=== PATIENT | male | born 1950 | race Caucasian/White ===

== ENCOUNTER 2021-06-21 05:24 | Day surgery (SDC) | payer OTHER ==
[~2021-06-21] VITALS: Ht 165 cm; Wt 86.0 kg
[~2021-06-21 05:24] MED LIST: AMLODIPINE BESYL5 MG PO; ATORVASTATIN CA20 MG PO; DICLOFENAC SODI75 MG PO; LOSARTAN-HCTZ1 EACH PO; METOPROLOL SUCC25 MG PO; OXYCODONE-ACET1 EAC1 PO; ZOLPIDEM TARTRA10 MG PO
[2021-06-21 06:57] LABS: BUN/CREAT RATIO (CALC) 16.8 RATIO; CREATININE 0.95 mg/dL (0.67-1.17); POTASSIUM 4.2 mmol/L (3.5-5.1)
--- NOTE | 2021-06-21 11:13 | NUR ---
PT HAD A RDATHR THIS DATE. PT. WILL D/C HOME WITH SPOUSE POSSIBLY TODAY. PT. HAS A ROLLING WALKER. PT. REQUESTED [facility] OUTPT. FIRST APPT. IS 06/23/21 @ 8:45 A.M. CHOICE FORM SIGNED AND COPY GIVEN.
[2021-06-21] MEDS ORDERED: ASPIRIN81 MG PO (15:03)
[2021-06-21] MEDS ORDERED: FEOSOL325 MG PO (15:03)
== END 2021-06-21 15:48 | disposition home or self-care (01) ==
LOC: FMS 05:24 → FAS 05:24 → FOR 07:00 → FAS 07:00 → FMS 07:55 → FAS 15:48
PROVIDERS: Anesthesiology; Orthopaedic Surgery
DX: M16.11 Unilateral primary osteoarthritis, right hip (principal); I10 Essential (primary) hypertension; E78.5 Hyperlipidemia, unspecified; Z72.89 Other problems related to lifestyle
CPT/HCPCS: 36415; 73501; 76000; 80048; 86850; 86900; 86901; 94010; 94762; 97162; 97165; 97530-GP; 97535; C1776; J0171; J0697; J1100; J1170; J1885; J2250; J2270; J2405; J2704; J2710; J2795; J3010; J7120